=== PATIENT | male | born 1975 | race Caucasian/White ===

== ENCOUNTER 2017-02-14 11:47 | Emergency (ER) | payer SELFPAY ==
[2017-02-14] MEDS ORDERED: Ondansetron 4 MG/2 ML SDV IVPUSH ONE (12:12)
[2017-02-14] MEDS ORDERED: HYDROmorphone 1 MG/ML Syringe IVPUSH ONE ×3 (12:12→14:58)
[2017-02-14] MEDS ORDERED: Sodium Chloride 0.9% 1,000 ML IV SCH (12:15)
--- NOTE | 2017-02-14 12:22 | EDM.PDOC ---
ED HPI GI/ABDOMINAL - General Chief Complaint: Abdominal Pain Stated Complaint: ABDOMINAL PAIN Time Seen by Provider: 02/14/17 12:03 Source of Information: Reports: Patient, RN notes reviewed History Limitations: Reports: No limitations - History of Present Illness INITIAL COMMENTS - FREE TEXT/NARRATIVE: The patient states that he developed non-bloody diarrhea around 14:00 yesterday , . He then developed central abdominal pain around 16:00. It is a stabbing in character. It does not radiate. It waxes and wanes. He developed nausea and emesis around midnight last night. He has had a subjective fever, stating that he sweated a lot last night. No urinary symptoms. No prior similar symptoms. His last oral solid food was around 16:00 yesterday, and his last oral liquid was around 07:00 this morning. - Related Data Allergies/ADRs: Allergies Allergy/AdvReac Type Severity Reaction Status Date / Time ampicillin Allergy Swelling Verified 02/14/17 11:54 Home Meds: Home Meds Dicyclomine [Bentyl] 1 tab PO Q6H PRN #20 tablet 02/14/17 [Rx] Nexium. 02/14/17 [History] Ondansetron [Zofran ODT] 1 tab PO Q8H PRN #10 tab.dis 02/14/17 [Rx] Past Medical History - Past Health History Medical/Surgical History: Denies Medical/Surgical History (The patient does not have a PCP. His last general physical exam was around 2006) Social & Family History - Tobacco Use Smoking Status *Q: Current Every Day Smoker Years of Tobacco use: 30 Packs/Tins Daily: 1 Second Hand Smoke Exposure: Yes - Alcohol Use Alcohol Use History: Yes Days Per Week of Alcohol Use: 2 Number of Drinks Per Day: 12 Total Drinks Per Week: 24 Alcohol Use Frequency: Socially - Recreational Drug Use Recreational Drug Use: No - Living Situation & Occupation Living situation: Reports: single, with family (Son, brother) Occupation: employed (Construction remodeling) ED ROS GENERAL - Review of Systems Review Of Systems: See Below Constitutional: Reports: no symptoms HEENT: Reports: No symptoms Respiratory: Reports: No Symptoms Cardiovascular: Reports: No symptoms Endocrine: Reports: no symptoms GI/Abdominal: Reports: No symptoms : Reports: no symptoms Musculoskeletal: Reports: no symptoms Skin: Reports: no symptoms Neurological: Reports: No Symptoms Psychiatric: Reports: No symptoms Hematologic/Lymphatic: Reports: no symptoms Immunologic: Reports: no symptoms ED EXAM, GI/ABD - Physical Exam Exam: See Below Exam Limited By: No limitations General Appearance: alert, WD/WN, no apparent distress Eyes: bilateral: normal appearance, EOMI Ears: normal external exam, hearing grossly normal Nose: normal inspection, no blood Throat/Mouth: Normal inspection, Normal lips, Normal voice, No airway compromise Head: atraumatic, normocephalic Neck: normal inspection, full range of motion Respiratory/Chest: no respiratory distress, lungs clear, normal breath sounds, no accessory muscle use, chest non-tender Cardiovascular: normal peripheral pulses, regular rate, rhythm, no edema, no gallop, no JVD, no murmur, no rub GI/Abdominal: soft, no organomegaly, no distention, no abnormal bruit, no mass, hypoactive bowel sounds, tenderness (Generalized, but most tender in the left lower quadrant.). No: guarding, McBurney's sign, Kohli's sign Back Exam: normal inspection, full range of motion. No: CVA tenderness (L), CVA tenderness (R) Extremities: normal inspection, normal range of motion, no pedal edema, normal capillary refill Neurological: alert, oriented, normal cognition, no motor/sensory deficits Psychiatric: normal affect Skin Exam: Warm, Dry, Intact, Normal color, No rash Lymphatic: no adenopathy Course - Vital Signs Last Recorded V/S: Last Vital Signs Temp 36.2 C 02/14/17 11:56 Pulse 102 H 02/14/17 11:56 Resp 18 02/14/17 11:56 BP 136/85 02/14/17 11:56 Pulse Ox 95 02/14/17 11:56 - Orders/Labs/Meds Orders: Active Orders 24 hr Category Date Time Status Sodium Chloride 0.9% [Normal Saline] 1,000 ml Med 02/14/17 12:15 Active IV ASDIRECTED Medication Orders Sodium Chloride (Normal Saline) 1,000 mls @ 150 mls/hr IV ASDIRECTED YUE Last Admin: 02/14/17 12:20 Dose: 150 mls/hr Labs: Laboratory Tests 02/14/17 02/14/17 02/14/17 Range/Units 12:19 12:19 13:10 WBC 11.92 H (4.23-9.07) K/mm3 RBC 4.93 (4.63-6.08) M/mm3 Hgb 16.4 (13.7-17.5) gm/L Hct 46.9 (40.1-51.0) % MCV 95.1 H (79.0-92.2) fl MCH 33.3 H (25.7-32.2) pg MCHC 35.0 (32.2-35.5) g/dl RDW Std Deviation 46.5 H (35.1-43.9) fL Plt Count 220 (163-337) K/mm3 MPV 9.4 (9.4-12.3) fl Neutrophils % (Manual) 67 H (40-60) % Band Neutrophils % 14 H (0-10) % Lymphocytes % (Manual) 17 L (20-40) % Atypical Lymphs % 0 % Monocytes % (Manual) 1 L (2-10) % Eosinophils % (Manual) 0 L (0.8-7.0) % Basophils % (Manual) 1 (0.2-1.2) Platelet Estimate Adequate RBC Morph Comment Normal Sodium 138 (136-145) mEq/L Potassium 4.2 (3.5-5.1) mEq/L Chloride 100 (98-107) mEq/L Carbon Dioxide 27 (21-32) mEq/L Anion Gap 15.2 H (5-15) BUN 10 (7-18) mg/dL Creatinine 1.0 (0.7-1.3) mg/dL Est Cr Clr Drug Dosing 85.95 mL/min Estimated GFR (MDRD) > 60 (>60) mL/min BUN/Creatinine Ratio 10.0 L (14-18) Glucose 115 H (74-106) mg/dL Calcium 9.2 (8.5-10.1) mg/dL Total Bilirubin 0.8 (0.2-1.0) mg/dL AST 45 H (15-37) U/L ALT 121 H (16-63) U/L Alkaline Phosphatase 130 H (46-116) U/L Total Protein 7.6 (6.4-8.2) g/dl Albumin 3.8 (3.4-5.0) g/dl Globulin 3.8 gm/dL Albumin/Globulin Ratio 1.0 (1-2) Lipase 225 (73-393) U/L Urine Color [place] H (Yellow) Urine Appearance Clear (Clear) Urine pH 6.0 (5.0-8.0) Ur Specific [place] 1.025 (1.005-1.030) Urine Protein 1+ H (Negative) Urine Glucose (UA) Negative (Negative) Urine Ketones Negative (Negative) Urine Occult Blood Negative (Negative) Urine Nitrite Negative (Negative) Urine Bilirubin 1+ H (Negative) Urine Urobilinogen 0.2 (0.2-1.0) Ur Leukocyte Esterase Negative (Negative) Urine RBC 0-5 (0-5) /hpf Urine WBC 0-5 (0-5) /hpf Ur Epithelial Cells 0-5 (0-5) /hpf Urine Bacteria Few (FEW) /hpf Urine Mucus Few (FEW) /hpf Meds: Medications Generic Name Dose Route Start Last Admin Trade Name Freq PRN Reason Stop Dose Admin Sodium Chloride 1,000 mls @ 150 mls/hr 02/14/17 12:15 02/14/17 12:20 Normal Saline IV 150 mls/hr ASDIRECTED YUE Administration Discontinued Medications Generic Name Dose Route Start Last Admin Trade Name Freq PRN Reason Stop Dose Admin Diatrizoate Meglum/Diatrizoate Sod 120 ml 02/14/17 12:52 02/14/17 13:27 Gastrografin 37% PO 02/14/17 12:53 90 ml ONETIME ONE Administration Hydromorphone HCl 1 mg 02/14/17 12:12 02/14/17 12:24 Dilaudid IVPUSH 02/14/17 12:13 1 mg ONETIME ONE Administration Hydromorphone HCl 1 mg 02/14/17 13:09 02/14/17 13:17 Dilaudid IVPUSH 02/14/17 13:10 1 mg ONETIME ONE Administration Hydromorphone HCl 1 mg 02/14/17 14:58 02/14/17 15:06 Dilaudid IVPUSH 02/14/17 14:59 1 mg ONETIME ONE Administration Iopamidol 150 ml 02/14/17 13:28 02/14/17 13:29 Isovue-300 (61%) IVPUSH 02/14/17 13:29 125 ml ONETIME ONE Administration Ondansetron HCl 4 mg 02/14/17 12:12 02/14/17 12:20 Zofran IVPUSH 02/14/17 12:13 4 mg ONETIME ONE Administration Sodium Chloride 10 ml 02/14/17 12:52 02/14/17 13:29 Saline Flush FLUSH 02/14/17 12:53 10 ml ONETIME ONE Administration - Radiology Interpretation Free Text/Narrative:: CT of the abdomen and pelvis with oral and IV contrast is read as: 1. Bowel wall thickening within multiple ileal loop. Findings are compatible with nonspecific enteritis. 2. Fatty infiltration throughout the liver. Mild gastroesophageal reflux of contrast is seen. 3. Other incidental findings as noted above. - Re-Assessments/Exams Free Text/Narrative Re-Assessment/Exam: 02/14/17 15:30 Test results discussed with the patient and his brother. Today's workup indicates the patient likely has viral enteritis. Treatment is symptomatic. I will prescribe Zofran and Bentyl, and I recommended he take [id number] loperamide for diarrhea. Stay well hydrated, but likely avoid solid food until his symptoms improve. I will refer him to the clinic, should his symptoms not improve. Departure - Departure Time of Disposition: 15:31 Disposition: Home, Self-Care 01 Condition: fair Clinical Impression: Viral enteritis Referrals: PCP,None [Primary Care Provider] - Elif High PA-C [Physician Private Security Guard] - Forms: ED Department Discharge Additional Instructions: You were seen in the emergency room today for abdominal pain, nausea, vomiting, and diarrhea. Workup in the ER included blood work, a urinalysis, and a CT scan of your abdomen and pelvis. Your workup shows that you have inflammation of your small intestine, a condition called enteritis. This is likely viral. Unfortunately, there is no medicine to treat viral enteritis - it will have to run its course, however, we can treat the symptoms. Dissolve one tablet of the anti-nausea medicine Zofran on your tongue up to every 8 hours, as needed for nausea/vomiting. Take one tablet of the anti-cramping medicine Bentyl up to every 6 hours as needed for abdominal cramps. If you are having diarrhea, purchase [id number] Imodium (loperamide). Take 2 tablets up front, then one tablet after each loose bowel movement, to a total of 8 tablets within a 24-hour period, as directed. Stay adequately hydrated. Gatorade is best. If you must eat, we recommend a bland diet, such as oatmeal, rice, applesauce, toast, etc. Followup with Elif High in the clinic, should your symptoms not improve over the weekend. If any other problems, please do not hesitate to return to the ER. - My Orders Last 24 Hours: My Active Orders 02/14/17 12:15 Sodium Chloride 0.9% [Normal Saline] 1,000 ml IV ASDIRECTED - Assessment/Plan Last 24 Hours: My Active Orders 02/14/17 12:15 Sodium Chloride 0.9% [Normal Saline] 1,000 ml IV ASDIRECTED
[2017-02-14] MEDS ORDERED: Iopamidol 755 Mg/ML 100 ML Bottle IVPUSH ONE (12:52)
[2017-02-14] MEDS ORDERED: Diatrizoate Meglumine/Diatrizoate Sodium 37% 120 ML Bottle PO ONE (12:52)
[2017-02-14] MEDS ORDERED: Sodium Chloride 0.9% 10 ML Syringe FLUSH ONE (12:52)
[2017-02-14] MEDS ORDERED: Iopamidol 612 MG/ML 150 ML Bottle IVPUSH ONE (13:28)
--- NOTE | 2017-02-14 13:52 | CT ---
CT abdomen and pelvis Technique: Multiple axial sections were obtained from above the dome of the diaphragm inferiorly through the pubic symphysis. Intravenous and oral contrast was utilized. Findings: Visualized lung bases shows nothing acute. Diffuse fatty infiltration is noted throughout the liver. No focal abnormality is appreciated within the liver. Small amount of contrast reflux is seen into the distal esophagus. Spleen appears within normal limits. Adrenal glands show no nodule. Pancreas is within normal limits. Kidneys show contrast enhancement without hydronephrosis or mass. Gallbladder shows no calcified gallstones. Pancreas appears within normal limits. Aorta shows no aneurysmal dilatation. No retroperitoneal adenopathy or mesenteric abnormalities are seen. Bowel wall thickening seen diffusely within ileal loops. No fluid collections are seen. Incidental prostate calcifications are noted. Delayed images shows contrast within the distal ureters and within the bladder. Bone window settings were reviewed which appear within normal limits for the patient's age. Impression: 1. Bowel wall thickening within multiple ileal loops. Findings are compatible with nonspecific enteritis. 2. Fatty infiltration throughout the liver. Mild gastroesophageal reflux of contrast is seen. 3. Other incidental findings as noted above. Diagnostic code #3
[2017-02-14 20:30] VITALS: BP 128/80
== END 2017-02-14 15:54 | disposition home or self-care (01) ==
LOC: JD.ED 11:47
DX: A08.4 Viral intestinal infection, unspecified (principal); F17.210 Nicotine dependence, cigarettes, uncomplicated; Z88.1 Allergy status to other antibiotic agents
CPT/HCPCS: 36415; 74177; 80053; 81001; 83690; 85025; 96361; 96374; 96375; 96376; 99284; J1170; J2405; J7040; J7050; Q9963; Q9967

== ENCOUNTER 2018-03-31 20:13 | Emergency (ER) | payer SELFPAY ==
[2018-03-31 20:54] VITALS: BP 118/72
[2018-03-31] MEDS ORDERED: Proparacaine 0.5% Ophth Soln 15 ML Bottle EYELF STA (21:58)
[2018-03-31] MEDS ORDERED: Fluorescein 0.6 MG Ophth Strip EYELF ONE (21:59)
== END 2018-03-31 22:05 | disposition left against medical advice (07) ==
LOC: JD.ED 20:13
DX: Z53.21 Procedure and treatment not carried out due to patient leaving prior to being seen by health care provider (principal)

== ENCOUNTER 2021-06-18 13:17 | Emergency (ER) | payer SELFPAY | END 2021-06-18 14:17 | disposition left against medical advice (07) | LOC: JD.ED 13:17 | DX: Z53.21 Procedure and treatment not carried out due to patient leaving prior to being seen by health care provider (principal) ==

== ENCOUNTER 2021-06-19 05:41 | Emergency (ER) | payer SELFPAY ==
[2021-06-19 05:56] VITALS: BP 132/73; PULSE 91
[2021-06-19] MEDS ORDERED: Cephalexin 500 MG Cap PO STA (06:10)
[2021-06-19] MEDS ORDERED: Diphtheria,Pertussis(Acell),Tetanus Vaccine 0.5 ML Syringe IM ONE (06:11)
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
== END 2021-06-19 06:26 | disposition home or self-care (01) ==
LOC: JD.ED 05:41
DX: S01.511A Laceration without foreign body of lip, initial encounter (principal); Z88.0 Allergy status to penicillin; Z72.0 Tobacco use; Z23 Encounter for immunization; W50.0XXA Accidental hit or strike by another person, initial encounter
CPT/HCPCS: 90471; 90715; 99282; A9270; 99283

== ENCOUNTER 2022-05-06 03:46 | Emergency (ER) | payer SELFPAY ==
[2022-05-06 04:03] VITALS: BP 114/85; PULSE 74
[2022-05-06] MEDS ORDERED: Fluorescein 1 MG Ophth Strip EYERT STA (04:14)
[2022-05-06] MEDS ORDERED: Proparacaine 0.5% Ophth Soln 15 ML Bottle EYERT STA (04:15)
[2022-05-06] MEDS ORDERED: Erythromycin Base 0.5% Ophth Oint 1 GM Tube EYERT STA (04:46)
== END 2022-05-06 05:05 | disposition home or self-care (01) ==
LOC: JD.ED 03:46
DX: T15.01XA Foreign body in cornea, right eye, initial encounter (principal); F17.210 Nicotine dependence, cigarettes, uncomplicated; Z88.0 Allergy status to penicillin
CPT/HCPCS: 65220; 99283; A9270

== ENCOUNTER 2022-11-23 00:15 | Emergency (ER) | payer SELFPAY ==
[2022-11-23 00:48] VITALS: BP 113/84; PULSE 110
== END 2022-11-23 02:06 | disposition home or self-care (01) ==
LOC: JD.ED 00:15
DX: S61.412A Laceration without foreign body of left hand, initial encounter (principal); F17.210 Nicotine dependence, cigarettes, uncomplicated; Z88.0 Allergy status to penicillin; W25.XXXA Contact with sharp glass, initial encounter; Y99.0 Civilian activity done for income or pay
CPT/HCPCS: 12001; 73130-26-LT; 73130-LT; 99283